=== PATIENT | male | born 1990 | race Two or more races ===

== ENCOUNTER 2021-11-19 02:03 | Emergency (ER) | payer OTHER ==
[~2021-11-19] VITALS: Ht 180.3 cm; Wt 113.4 kg
[2021-11-19] MEDS ORDERED: NALOXONE PREFILLED SYRINGE 2 MG/2 ML SYRINGE ONE (02:19)
--- NOTE | 2021-11-19 02:25 | NUR ---
PATIENT BIBRA 81 C/O BEINGING FOUND IN CAR BY GIRLFRIEND PASSED OUT. PT GIVEN 4MG NARCAN SPRAY, 2MG NARCAN IVP, 4 MG ZOFRAN IVP. PATIENT A/O TO PAIN. NO SOB, LABORED BREATHING NOTED. PATIENT CONNECTED TO CARDIAC AND POX MONITOR. WILL CONTINUE TO MONITOR.
--- NOTE | 2021-11-19 02:28 | NUR ---
URINE COLLECTED AND GIVEN TO LAB
--- NOTE | 2021-11-19 02:29 | NUR ---
eligibility consultant at pt's bedside
[2021-11-19] MEDS ORDERED: NALOXONE PREFILLED SYRINGE 2 MG/2 ML SYRINGE IV ONE (02:30)
[2021-11-19] MEDS ORDERED: ONDANSETRON HCL/PF 4 MG/2 ML VIAL ONE (02:35)
--- NOTE | 2021-11-19 02:44 | NUR ---
EMESIS X1 NOTED. ADMIN ZOFRAN 4MG IVP ORDERED. WILL REASSESS IN 30 MINUTES.
--- NOTE | 2021-11-19 02:54 | NUR ---
PT RETURNED TO ER BED [address]
[2021-11-19] MEDS ORDERED: ONDANSETRON HCL/PF - ER 4 MG/2 ML VIAL IV ONE (03:00)
[2021-11-19 03:10] LABS: BASOPHILS % (AUTO) 0.5 % (0.0-2.0); EOSINOPHILS % (AUTO) 1.8 % (0.0-6.0); HEMATOCRIT 48 % (39-51); HEMOGLOBIN 16.1 g/dL (13.5-17.5); LYMPHOCYTES # (AUTO) 1.6 K/uL (0.8-4.8); LYMPHOCYTES % (AUTO) 23.3 % (20.0-44.0); MEAN CORPUSCULAR HGB CONC 34 g/dl (31.0-36.0); MEAN CORPUSCULAR VOLUME 93 fL (80-96); MONOCYTES # (AUTO) 0.4 K/uL (0.1-1.30); MONOCYTES % (AUTO) 6.7 % (2.0-12.0); NEUTROPHILS # (AUTO) 4.5 K/uL (1.8-8.9); NEUTROPHILS % (AUTO) 67.7 % (43.0-81.0); PLATELET COUNT (AUTO) 234 K/uL (150-450); RED BLOOD CELL COUNT(AUTO) 5.13 MIL/uL (4.5-6.0); WHITE BLOOD COUNT (AUTO) 6.7 K/uL (4.3-11.0)
[2021-11-19 03:20] LABS: BILIRUBIN,URINE NEGATIVE (NEGATIVE); COLOR,URINE YELLOW (YELLOW); LEUKOCYTE ESTERASE ,URINE NEGATIVE (NEGATIVE); NITRITE, URINE NEGATIVE (NEGATIVE); PROTEIN,URINE TRACE mg/dl (NEGATIVE); UGLUCOSE 500 MG/DL mg/dL (NEGATIVE); UROBILINOGEN,URINE 0.2 EU/dL (0.2)
[2021-11-19 03:26] LABS: ALBUMIN 3.7 g/dL (3.4-5.0); BILIRUBIN,DIRECT 0.1 mg/dL (0.0-0.2); BILIRUBIN,TOTAL 0.2 mg/dL (0.2-1.0); CALCIUM, SERUM 8.6 mg/dL (8.5-10.1); CREATININE 1.1 mg/dL (0.6-1.3); POTASSIUM 3.4 mmol/L (3.5-5.1); TOTAL PROTEIN, SERUM 7.8 g/dL (6.4-8.2)
--- NOTE | 2021-11-19 04:39 | NUR ---
UPDATED KARLI () [phone] ON PT'S CONDITION
--- NOTE | 2021-11-19 08:02 | NUR ---
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
--- NOTE | 2021-11-19 08:34 | NUR ---
Note undone in EDM - 11/19/21 at 0835 by CBATACLAN IV removed. Catheter intact and site benign. Pressure and 4x4 applied to site. No bleeding noted.Patient discharged to home in stable condition. Written and verbal after care instructions given. Patient verbalizes understanding of instruction.
--- NOTE | 2021-11-19 08:39 | NUR ---
PICKED UP BY , KARLI
[2021-11-19 08:40] VITALS: BP 138/86
[2021-11-19 10:30] LABS: BACTERIA,URINE Rare /HPF (None Seen); SQUAMOUS EPITHELIAL CELL,UR Rare /HPF (None Seen); WBC,URINE 0-2 /HPF (0-3)
== END 2021-11-19 08:40 | disposition home or self-care (01) ==
LOC: ER 02:06
DX: R41.82 Altered mental status, unspecified (principal); F10.129 Alcohol abuse with intoxication, unspecified; F15.10 Other stimulant abuse, uncomplicated; Z60.2 Problems related to living alone; Y90.3 Blood alcohol level of 60-79 mg/100 ml
CPT/HCPCS: 36415; 70450; 80048; 80076; 80143; 80307; 80320; 81001; 85025; 96374; 96375; 99285; J2310; J2405 ×2; G0480